=== PATIENT | male | born 2000 | race Two or more races ===

== ENCOUNTER 2023-01-06 16:47 | Emergency (ER) | payer OTHER ==
[~2023-01-06] VITALS: Ht 177.8 cm; Wt 83.5 kg
[2023-01-06 17:30] VITALS: BP 141/74; PULSE 90; TEMP 99.2
[2023-01-06] MEDS ORDERED: DexAMETHasone SOD PHOS 10MG/1ML VIAL INJ IM ONE (19:30)
[2023-01-06] MEDS ORDERED: ALBUTEROL SULF 2.5 MG/0.5ML(0.5%) NEB SOLN NEB ONE (19:30)
[2023-01-06] MEDS ORDERED: IPRATROPIUM BROM 0.5 MG/2.5ML INH SOL NEB ONE (19:30)
[2023-01-06] MEDS ORDERED: ALBUTEROL MEDNEB 2.5 mg/3ml NEB ONE (19:38)
[2023-01-06 20:04] VITALS: RESP 18; O2SAT 97
[2023-01-06] MEDS ORDERED: PRED20TA2 PO (21:28)
[2023-01-06] MEDS ORDERED: AZITTAB PO (21:28)
[2023-01-06] MEDS ORDERED: IBUP1TAB5 PO (21:28)
[2023-01-06] MEDS ORDERED: BENZ200C64 PO (21:28)
[2023-01-06] MEDS ORDERED: ALBUAER3 IN (21:28)
== END 2023-01-06 22:50 | disposition home or self-care (01) ==
LOC: ER 16:47
DX: J20.9 Acute bronchitis, unspecified (principal); Z20.822 Contact with and (suspected) exposure to COVID-19; F17.210 Nicotine dependence, cigarettes, uncomplicated
CPT/HCPCS: 71045; 94640; 96372; 99283; J1100; J7644